=== PATIENT | male | born 1950 | race Caucasian/White ===

== ENCOUNTER 2022-09-07 18:35 | Emergency (ER) | payer MEDICARE, OTHER ==
[~2022-09-07] VITALS: Ht 182.9 cm; Wt 117.9 kg
[~2022-09-07 18:35] MED LIST: ALBUTEROL2.5 MG/0.5 INH; ASPIRIN EC81 MG PO; BETAMETHASONE D15 G3 TOP; COREG25 MG PO; DIOVAN HCT 3201 EAC1 PO; FISH OIL 1,2001 EAC1 PO; METFORMIN HCL1000 MG PO; PRILOSEC20 MG PO; ROBAXIN500 MG PO; SIMVASTATIN20 MG PO; SYMBICORT 16010.2 GM INH
--- OUTSIDE RECORDS SUMMARY | 2022-09-07 18:42 | XMS ---
PreManage Notification: DELORES PERES [employer] Events No recent Security Events currently on file CRITERIA MET - [facility] CARE PROVIDERS There are no care providers on record at this time. Lester has no Care Guidelines for this patient. [place] VISIT COUNT (12 MO.) [address] [place] [id number] [place] [place] TOTAL 2 NOTE: Visits indicate total known visits. ED/C VISIT TRACKING (12 MO.) 09/07/2022 18:39 [facility] [place] TYPE: Emergency COMPLAINT: - ALLERGIC REACTION 12/29/2021 12:57 [facility] [place] TYPE: Emergency DIAGNOSES: - Allergic contact dermatitis, unspecified cause - rash poss spider bite - Other prurigo INPATIENT VISIT TRACKING (12 MO.) No inpatient visits to display in this time frame [email or web address]
[2022-09-07] MEDS ORDERED: CLONAZEPAM1 MG PO (18:58)
[2022-09-07] MEDS ORDERED: TRIAMCINOLONE A15 G1 TOP (18:58)
[2022-09-07] MEDS ORDERED: AMLODIPINE BESYL5 MG PO (18:59)
[2022-09-07] MEDS ORDERED: SIMVASTATIN80 MG PO (18:59)
[2022-09-07] MEDS ORDERED: METOPROLOL SUC200 MG PO (18:59)
[2022-09-07] MEDS ORDERED: LOSARTAN POTAS100 MG PO (18:59)
[2022-09-07] MEDS ORDERED: HYDROCHLOROTHIA25 MG PO (18:59)
[2022-09-07] MEDS ORDERED: PIOGLITAZONE HC30 MG PO (18:59)
[2022-09-07] MEDS ORDERED: ZYRTEC10 MG PO (19:02)
[2022-09-07] MEDS ORDERED: PREDNISONE20 MG PO (19:02)
== END 2022-09-07 20:11 | disposition home or self-care (01) ==
LOC: ED 18:35
DX: L25.9 Unspecified contact dermatitis, unspecified cause (principal); Z79.899 Other long term (current) drug therapy; Z79.84 Long term (current) use of oral hypoglycemic drugs; Z79.82 Long term (current) use of aspirin
CPT/HCPCS: 96372; 99283; J2930